=== PATIENT | female | born 1965 ===

== ENCOUNTER 2024-12-15 22:12 | Emergency (ER) | payer SELFPAY ==
[2024-12-15 22:14] VITALS: BP 159/78; PULSE 57; RESP 18; TEMP 36.2; O2SAT 100
--- NOTE | 2024-12-15 22:15 | RT.EKG_ITS ---
APPROVED REPORT Exam: Resting ECG Reason for Exam: upper abd pain Patient Location: E HR:62 bpm ECG Measurements Heart Rate 62 AXIS PA 140 P 52 QRSd 81 QRS 48 QT 451 T 46 QTc 458 Conclusion Sinus rhythm...normal P axis, V-rate 60- 99
--- NOTE | 2024-12-15 22:24 | ED.GENADUL_ITS ---
Discharge Plan Discharge Details Chief Complaint: Abd Prob Clinical Impression: Abdominal pain ED Provider: Kaushik Herrera [facility] General Mode of arrival: ambulatory . Date/Time Provider Initiated Documentation: 12/15/24 22:13 . Limitations to Documentation: no limitations . Information obtained by: patient . History of Present Illness 59 year old F presents to the emergency department with the chief complaint of abdominal pain, described as moderate, Quality is described as aching, and is localized to the chest and abdomen. Patient started experiencing this month(s) (1) and it has been intermittent. No relieving factors improve symptom(s), No exacerbating factors reported . Patient notes chest pain; denies fever/chills and shortness of breath. Patient did receive the following treatments prior to arrival, none General Stated Complaint: Abd Prob LUNA: 3 Review of Systems All systems reviewed & are unremarkable except as noted in HPI and below Constitutional Constitutional: Denies chills, Denies fever(s) and Denies weakness Cardiovascular Cardiovascular: Reports chest pain and Denies dyspnea Respiratory Respiratory: Denies cough and Denies dyspnea Gastrointestinal Gastrointestinal: Reports abdominal pain, Reports nausea and Denies vomiting Neurologic Neurologic: Denies weakness Exam Const General: no acute distress Orientation: alert [facility] Head: normal to inspection Ears: external ears normal General nose exam: external nose normal Mouth: moist mucous membranes Eyes General: appearance normal, both eyes and all related structures Neck Neck: normal visual inspection Resp Effort & Inspection: normal respiratory effort and able to speak in complete sentences Auscultation: clear to auscultation bilaterally Cardio Jugular venous pressure: no JVD Rate: regular rate GI Palpation: soft and tender Skin General skin exam: no rashes or lesions noted Neuro General: patient alert and patient oriented x3 Extrem General: normal to inspection Psych Mental Status: mental status grossly normal Course Vital Signs Vital signs: Vital Signs Temperature 36.2 C L 12/15/24 22:14 Pulse 57 L 12/15/24 22:14 Respiratory Rate 18 12/15/24 22:14 Blood Pressure 159/78 H 12/15/24 22:14 Pulse Oximetry 100 12/15/24 22:14 Temperature 36.2 C L 12/15/24 22:14 Temperature Source Tympanic 12/15/24 22:14 Pulse 57 L 12/15/24 22:14 Respiratory Rate 18 12/15/24 22:14 Blood Pressure 159/78 H 12/15/24 22:14 Pulse Oximetry 100 12/15/24 22:14 Oxygen Delivery Method Room Air 12/15/24 22:14 Oxygen Flow Rate 0 12/15/24 22:14 Pain Level 10 12/15/24 22:14 Medical Decision Making 59-year-old female who denies any chronic medical problems, does smoke marijuana but denies other drug use, states she has had her fallopian tube and ovary removed in the past otherwise no abdominal surgeries comes in with 1 month of intermittent upper abdominal discomfort which she thinks could be from her gallbladder. She has not been evaluated for this but states that she is talk to some friends who have had similar issues with her gallbladder and feels it is similar to what they have had. She states the pain will sometimes move to her chest. She denies any vomiting but has had nausea. No fevers. She is stable on arrival. Her abdomen is soft she has no tenderness in the lower abdomen. She does have right upper quadrant tenderness and epigastric tenderness. She has clear lung sounds. She says that taking deep breaths sometimes makes the pain worse. Given the location of the pain and sometimes the pain being in the chest I am going to proceed with a CBC CMP lipase and troponins and also a CTA of the chest to evaluate for possible PE and less likely infiltrate in also CT abdomen pelvis to evaluate for signs of cholecystitis. She has no tearing back pain and she has equal peripheral pulses so I doubt dissection. Patient will be signed out to oncoming provider pending labs, imaging results and reassessment after droperidol and Toradol. Differential Diagnosis Differential Diagnosis: gastritis, biliary colic, acs, PE Lab Data Lab results reviewed: Yes I reviewed the patient's lab results. ECG Data Attestation: I personally reviewed and interpreted this ECG (s) as follows: Prior ECG tracings: not available for review Interpretation: sinus rate of 62 no stemi PFSH All Active Problems (Updated 12/15/24 @ 22:31 by Kaushik Herrera MD) Abdominal pain (Acute) Social History Smoking risk assessment performed?: No
[2024-12-15 22:30] LABS: Abs Immature Grans 0.08 10^3/uL (0.0-0.06); HCT 39.3 % (36.0-46.0); HGB 13.7 g/dL (11.2-15.7); Immature Grans % 0.5 %; MCH 30.6 pg (27.0-33.0); MCHC 34.9 % (32.0-36.0); MCV 88 fL (80-95); MPV 11.2 fL (8.0-11.0); Platelet Count 269 10^3/uL (130-400); RBC 4.48 10^6/uL (3.93-5.22); RDW 12.1 % (11.7-14.6); RDW-SD 39.2 fL; WBC 15.09 10^3/uL (4.4-10.8)
[2024-12-15 22:31] VITALS: PULSE 74; O2SAT 100
[2024-12-15] MEDS: Ketorolac 15 MG/ML VIAL IVP (22:39)
[2024-12-15] MEDS: Droperidol 5 MG/2 ML VIAL 2.5 MG IVP (22:39)
[2024-12-15] MEDS: Normal Saline 1,000 ML 1000 ML IV (22:39)
[2024-12-15 22:55] LABS: ALT 23 U/L (14-59); AST 16 U/L (15-37); Albumin 4.1 g/dL (3.4-5.0); Alkaline Phosphatase 55 U/L (46-116); Anion Gap 11.1 mmol/L (3-11); BUN 11 mg/dL (7-18); Bilirubin, Direct 0.1 mg/dL (0.0-0.2); Bilirubin, Total 0.4 mg/dL (0.2-1.0); CO2 25.9 mmol/L (21.0-32.0); Calcium 9.2 mg/dL (8.5-10.1); Chloride 104 mmol/L (98-107); Glucose 104 mg/dL (74-106); Magnesium 1.8 mg/dL (1.8-2.4); Potassium 3.5 mmol/L (3.5-5.1); Sodium 141 mmol/L (136-145); TSH (W/Ref FT4) 1.51 uIU/mL (0.36-3.74); Total Protein 7.1 g/dL (6.4-8.2); Troponin I 6 ng/L (<or=51)
[2024-12-15] MEDS: Omnipaque 350 MG/ML 100 ML BTL IJ (23:38)
[2024-12-15] MEDS: Normal Saline - Diluent 50 ML VIAL IJ (23:38)
[2024-12-15] MEDS: Normal Saline Flush 10 ML SYR IVP (23:39)
--- NOTE | 2024-12-15 23:39 | DI.CT_ITS ---
Exam(s) CT CHEST PE ABD PELVIS W EXAM: CT CHEST PE ABD PELVIS W CLINICAL HISTORY: right sided abd/chest pain. TECHNIQUE: Imaging Protocol: Axial CT angiography was performed with multi- slice acquisition and multi-planar and/or 3D reconstructions. Computer aided detection (CAD) was utilized. CONTRAST MATERIAL: Intravenous: Omnipaque 350contrast volume:75 mL COMPARISON: No exams were available for comparison FINDINGS: CHEST: Tracheobronchial tree: Patent where visualized. No evidence of bronchiectasis. Pulmonary parenchyma: There are no focal consolidations. Atelectatic changes are seen in the lungs. No architectural distortion. Pulmonary Arteries: No evidence of filling defect to suggest pulmonary emboli. Mediastinum and Roseanne: No dominant adenopathy or fluid collection. The esophagus is unremarkable. Visualized thyroid gland: Unremarkable. Pleura: No effusion or pneumothorax. Heart: The heart is not dilated. No coronary artery calcifications are seen. No pericardial effusion. Aorta: Thoracic aorta non-dilated. No evidence of dissection. Bones: Within normal limits for the patient's age. Soft tissues: Unremarkable. ABDOMEN: Liver: Normal density. No measurable mass. Portal, Superior Mesenteric, and Splenic Veins: Unremarkable. Gallbladder and Biliary Tract: There is a gallstone present. There is no significant biliary ductal dilatation. Pancreas: Normal density, no abnormal calcifications or inflammatory process. Spleen: Normal. Adrenals: No masses seen. Kidneys: Normal size, contour and axis. No radiodense stones or obstructive uropathy. No masses seen. Abdominal Aorta: Abdominal portion non-dilated. Bowel: No obstruction or bowel wall thickening. The appendix measures 6 mm in diameter. No Kaley appendiceal inflammatory changes or appendicolith is seen to suggest an active appendicitis at this time. Peritoneal Cavity: No ascites, collection or mesenteric inflammatory response. No free air. Lymph Nodes: Within normal limits. Bones: Within normal limits for the patient's age. Soft Tissues: Unremarkable. PELVIS: Bladder: Symmetric distention, no gross wall thickening. Reproductive Organs: There is a 2 cm left ovarian cyst. Lymph Nodes: Within normal limits. Bones: Within normal limits. IMPRESSION: 1. There is no evidence of acute appendicitis. The appendix is at the upper limits of normal in size. Follow-up as clinically appropriate. 2. No definite acute abdominal or pelvic process. 3. Cholelithiasis without CT evidence to suggest acute cholecystitis. 4. There is mild thickening of the wall of the mid sigmoid colon. There is no significant pericolonic inflammation is seen. This may be due to underdistention. Colitis should be considered. Please correlate clinically. 5. There is no evidence of a pulmonary embolism, thoracic aortic dissection or aneurysm. 6. The preliminary [facility] report was reviewed. RADIATION DOSE DELIVERED: 353.95mGy.cm Total DLP DATA REPOSITORY: All CT scans at this facility are submitted to the National Radiology Data Registry (NRDR) Dose Index Registry (DIR) with the [employer] (ACR). RADIATION OPTIMIZATION: All CT scans at this facility use at least one of these dose optimization techniques: automated exposure control; mA and/or kV adjustment per patient size (includes targeted exams where dose is matched to clinical indication); or iterative reconstruction.
--- NOTE | 2024-12-16 | DI.[facility]_ITS ---
PROCEDURE INFORMATION: Exam: CTA Chest With Contrast Exam date and time: 12/15/2024 11:14 PM Age: 59 years old Clinical indication: Abdominal pain; Localized; Right-sided; Right sided abd/chest pain TECHNIQUE: Imaging protocol: Computed tomographic angiography of the chest with contrast. Exam focused on the arteries. 3D rendering (Not supervised by radiologist): MIP and/or 3D reconstructed images were created by the technologist. Radiation optimization: All CT scans at this facility use at least one of these dose optimization techniques: automated exposure control; mA and/or kV adjustment per patient size (includes targeted exams where dose is matched to clinical indication); or iterative reconstruction. Contrast material: [id number]; Contrast volume: 75 ml; Contrast route: INTRAVENOUS (IV); COMPARISON: No relevant prior studies available. FINDINGS: Pulmonary arteries: No acute pulmonary embolus. Aorta: Unremarkable. No aortic aneurysm. No aortic dissection. Lungs: Lung volumes are low. There are scattered ground-glass radiopacities bilaterally. Pleural spaces: Unremarkable. No pneumothorax. No pleural effusion. Heart: Heart is normal size. No pericardial effusion. Lymph nodes: No enlarged lymph nodes. Bones/joints: Bones have a normal appearance. No acute fracture or suspicious bone lesion. Soft tissues: Unremarkable. Other findings: No acute IMPRESSION: 1. No pulmonary embolus. 2. No acute pulmonary findings. Ground-glass radiopacities are present bilaterally which may be associated with air trapping. PROCEDURE INFORMATION: Exam: CT Abdomen And Pelvis With Contrast Exam date and time: 12/15/2024 11:14 PM Age: 59 years old Clinical indication: Abdominal pain; Localized; Right-sided; Right sided abd/chest pain TECHNIQUE: Imaging protocol: Computed tomography of the abdomen and pelvis with contrast. Radiation optimization: All CT scans at this facility use at least one of these dose optimization techniques: automated exposure control; mA and/or kV adjustment per patient size (includes targeted exams where dose is matched to clinical indication); or iterative reconstruction. Contrast material: [id number]; Contrast volume: 75 ml; Contrast route: INTRAVENOUS (IV); COMPARISON: No relevant prior studies available. FINDINGS: Liver: The liver has a normal appearance. Gallbladder and biliary ducts: A cholesterol gallstone is present in the gallbladder fundus. No gallbladder wall thickening or pericholecystic fluid. Pancreas: The pancreas demonstrates normal size. No pancreatic ductal dilatation. Spleen: The spleen demonstrates normal size. Adrenal glands: The adrenal glands have a normal appearance. Kidneys and ureters: The kidneys are normal in size. There is a low-density right renal cyst. No hydronephrosis. No hydroureter or ureterolithiasis. Stomach and bowel: The bowel demonstrates overall normal caliber and wall thickness. Mild, circumferential wall thickening and pericolonic fat stranding is present within the mid sigmoid colon. Appendix: The appendix is thin walled. Intraperitoneal space: Unremarkable. No free air. No significant fluid collection. Vasculature: The IVC and aorta have a normal appearance. Lymph nodes: No enlarged lymph nodes. No enlarged lymph nodes. Urinary bladder: The bladder is thin walled and fluid filled. Reproductive: The uterus has a normal appearance. Bones/joints: Bones have a normal appearance. No acute fracture or suspicious bone lesion. Soft tissues: Unremarkable. IMPRESSION: 1. Findings consistent with mild acute sigmoid colitis. 2. Normal appendix. 3. Cholelithiasis. No findings to suggest choledocholithiasis or acute cholecystitis. Dictated and Authenticated by: Shellie Young MD. Orderin Javier Faulkner MD
[2024-12-16 00:05] LABS: Troponin I 6 ng/L (<or=51)
[2024-12-16] MEDS: MORPHine 4 MG/ML SYR IVP (00:35)
[2024-12-16] MEDS: metroNIDAZOLE 500 MG TAB PO (00:35)
[2024-12-16] MEDS: ACETAMINOPHEN 1,000 MG/100 ML BAG 400 MG IVPB (00:35)
[2024-12-16] MEDS: Ciprofloxacin 500 MG TAB PO (00:35)
[2024-12-16 01:02] LABS: Glucose Negative (Negative)
--- NOTE | 2024-12-16 01:21 | ED.PROG_ITS ---
Date of service: 12/16/24 Time of Service: 01:21 Medical Decision Making Patient was signed out to me by Dr. Kaushik Lorenzo. At time of signout we are awaiting all labs and imaging. Patient came in with complaint of right upper quadrant abdominal pain. It began shortly after eating got around 1500. She admits to nausea but denies vomiting. Exam demonstrates right upper quadrant tenderness. Just patient was given IV NSAID therapy and morphine, on reassessment she is feeling much better. Pain significantly improved however achiness is still persistent and right upper quadrant but certainly not severe or surgical. No evidence of guarding or rebound. Laboratory workup shows a white count of 15, no bandemia. Electrolytes normal, serial troponins normal. Thyroid function normal. Urinalysis shows no infection. CT scan shows no evidence of pulmonary embolus, no acute pulmonary findings aside for mild ground glass radiopacities which likely represent air trapping, but no large focal consolidation. Patient does have mild acute sigmoid colitis, she also has a large gallstone but no evidence of choledocholithiasis, or cholecystitis. Labs show no transaminitis or elevated bilirubin. Symptoms clinically inconsistent at this stage with acute cholecystitis or surgical gallbladder pathology. With the improvement of her symptoms and the lack of any acute surgical etiology I suspect her symptomatology is likely combination of the mild sigmoid colitis and the cholelithiasis bring about symptom of biliary colic from gallstones. We did give the patient the option of continued observation and potential ultrasound in the morning versus discharge with supportive therapy and return if symptoms worsen. Patient has elected to go home and will probably return if symptomatology worsens. We will place referral with surgery for outpatient discussion of nonemergent potential surgical options. I did discuss with the patient dietary changes to avoid potential biliary colic. Discussed the importance of NSAID therapy. Will give a dose of Diflucan for home when she completes the antibiotics as she states she does often get yeast infections. Additionally we will give a course of Cipro Flagyl for home for the colitis. Patient stable for discharge. Discussed red flags for which to return. I have extensively reviewed the treatment plan and discharge instructions with the patient. I have addressed all patient concerns at this time. The patient was made aware of what symptoms to monitor for that would warrant a return to the emergency department. Discussed the plan with the patient, they demonstrate verbal understanding and agreement with our assessment and plan at this time. The documentation in this chart was dictated using [employer] dictation software. Please excuse any dictation errors. FINDINGS: Pulmonary arteries: No acute pulmonary embolus. Aorta: Unremarkable. No aortic aneurysm. No aortic dissection. Lungs: Lung volumes are low. There are scattered ground-glass radiopacities bilaterally. Pleural spaces: Unremarkable. No pneumothorax. No pleural effusion. Heart: Heart is normal size. No pericardial effusion. Lymph nodes: No enlarged lymph nodes. Bones/joints: Bones have a normal appearance. No acute fracture or suspicious bone lesion. Soft tissues: Unremarkable. Other findings: No acute IMPRESSION: 1. No pulmonary embolus. 2. No acute pulmonary findings. Ground-glass radiopacities are present bilaterally which may be associated with air trapping. FINDINGS: Liver: The liver has a normal appearance. Gallbladder and biliary ducts: A cholesterol gallstone is present in the gallbladder fundus. No gallbladder wall thickening or pericholecystic fluid. Pancreas: The pancreas demonstrates normal size. No pancreatic ductal dilatation. Spleen: The spleen demonstrates normal size. Adrenal glands: The adrenal glands have a normal appearance. Kidneys and ureters: The kidneys are normal in size. There is a low-density right renal cyst. No hydronephrosis. No hydroureter or ureterolithiasis. Stomach and bowel: The bowel demonstrates overall normal caliber and wall thickness. Mild, circumferential wall thickening and pericolonic fat stranding is present within the mid sigmoid colon. Appendix: The appendix is thin walled. Intraperitoneal space: Unremarkable. No free air. No significant fluid collection. Vasculature: The IVC and aorta have a normal appearance. Lymph nodes: No enlarged lymph nodes. No enlarged lymph nodes. Urinary bladder: The bladder is thin walled and fluid filled. Reproductive: The uterus has a normal appearance. Bones/joints: Bones have a normal appearance. No acute fracture or suspicious bone lesion. Soft tissues: Unremarkable. IMPRESSION: 1. Findings consistent with mild acute sigmoid colitis. 2. Normal appendix. 3. Cholelithiasis. No findings to suggest choledocholithiasis or acute cholecystitis. Thank you for allowing us to participate in the care of your patient. Dictated and Authenticated by: Shellie Young MD 12/16/2024 12:00 AM Eastern Time ([place] & [place]) Discharge Plan Disposition Patient Disposition: Home Condition: Good Discharge Details Clinical Impression: Abdominal pain, Biliary colic, Gallstone, Colitis Primary Care Provider: No,Local ED Provider: Ras Valiente Home Meds and New Rx's Prescriptions: New ciprofloxacin HCl [Cipro] 500 mg tablet 500 mg PO BID 7 Days Qty: 14 0RF metronidazole 500 mg tablet 500 mg PO Q8H 7 Days Qty: 21 0RF fluconazole 150 mg tablet 150 mg PO ONCE Qty: 1 0RF Rx Instructions: as a single dose Discharge Instructions Instructions: Gallstones, Colitis Additional Instructions: At this time you have evidence of gallstones, which are likely a component of your symptoms. Thankfully there is no evidence of inflammation of your gallbladder or blockage from the gallstones. Please avoid any dairy products fatty products or greasy products as this can exacerbate your symptoms every time the gallbladder contracts. Although there is no significant problem with a gallstone at this time you can certainly develop a complication from it in the future. If you notice return or worsening of your pain, please return imme diately for reassessment. Please follow-up closely with your surgeon for further discussion of nonemergent outpatient surgical management. We have placed a referral on your behalf and their office will contact you for an appointment time. Additionally you show evidence of mild inflammation of your colon which is likely infectious in origin. Please take the antibiotic as prescribed. Please take the Diflucan once you have finished your antibiotic treatment to help prevent any yeast. If you notice any worsening of your symptoms, or any new symptoms such as vomiting, diarrhea, fever, chills, shortness of breath, chest pain, numbness, weakness, or fainting , please return immediately to the emergency department for reevaluation. Please follow up with your primary care provider as soon as possible for reassessment and reevaluation. As always, it was a pleasure participating in your medical care today. Referrals: Berenice Smith MD [ [facility] STAFF PHYSICIAN, Surgery] Bradly Bender MD [ [facility] STAFF PHYSICIAN, Surgery]
[2024-12-16 01:33] VITALS: BP 153/73; PULSE 80; RESP 15; TEMP 36.7; O2SAT 100
[2024-12-16 01:42] VITALS: BP 153/73; PULSE 80; RESP 15; O2SAT 100
== END 2024-12-16 01:47 | disposition home or self-care (01) ==
PROVIDERS: Emergency Medicine; Emergency Provider Student in an Organized Health Care Education/Training Program
DX: R10.11 Right upper quadrant pain (principal); K52.9 Noninfective gastroenteritis and colitis, unspecified; K80.20 Calculus of gallbladder without cholecystitis without obstruction; K80.50 Calculus of bile duct without cholangitis or cholecystitis without obstruction
CPT/HCPCS: 99284; 99285; 36415; 96374; 96375; 00123; 71275; 74177; 80053; 93005; 96361; 81003; 82248; 83735; 84443; 84484; 85025; 93010; J0131; J1790; J1885; J2270; J3490